=== PATIENT | female | born 1995 | race Two or more races ===

== ENCOUNTER 2024-09-20 08:20 | Emergency (ER) | payer MEDICAID ==
[~2024-09-20] VITALS: Ht 167.6 cm; Wt 61.2 kg
[2024-09-20 10:54] VITALS: TEMP 98.2
[2024-09-20 11:18] VITALS: BP 120/68; O2SAT 98
== END 2024-09-20 11:18 | disposition home or self-care (01) ==
LOC: ER 08:20
DX: J06.9 Acute upper respiratory infection, unspecified (principal); R11.2 Nausea with vomiting, unspecified; Z20.822 Contact with and (suspected) exposure to COVID-19
CPT/HCPCS: 86403-TC; 87070-TC